=== PATIENT | female | born 1995 | race Caucasian/White ===

== ENCOUNTER 2016-12-14 12:30 | Emergency (ER) | payer OTHER ==
[~2016-12-14] VITALS: Ht 162.6 cm; Wt 121.9 kg
[~2016-12-14 12:30] MED LIST: AMOXICILLIN500 MG PO; AMOXICILLIN875 MG PO; CIPROFLOXACIN H10 ML BOTH EYES; CLARITIN-D 121 EACH PO; FLEXERIL10 MG PO; IBUPROFEN600 MG PO; INDOCIN25 MG PO; MOTRIN600 MG PO; NAPROSYN500 MG PO; NAPROXEN500 MG PO; NORCO 5/3251 TABLET PO; PERCOCET 5/31 TABLET PO; PREDNISONE10 M1 PO; ULTRACET1 TABLET PO; VALIUM5 MG PO; VENTOLIN HFA18 GM IH; VIGAMOX 0.60 DROP/3 BOTH EYES; ZITHROMAX Z-PA250 MG PO
[2016-12-14 14:22] VITALS: BP 132/80
== END 2016-12-14 14:23 | disposition home or self-care (01) ==
LOC: EME 12:30
DX: S99.912A Unspecified injury of left ankle, initial encounter (principal); S99.922A Unspecified injury of left foot, initial encounter; X58.XXXA Exposure to other specified factors, initial encounter; F17.200 Nicotine dependence, unspecified, uncomplicated
CPT/HCPCS: 73630; 99281; 99283

== ENCOUNTER 2017-05-09 19:01 | Emergency (ER) | payer OTHER ==
[~2017-05-09] VITALS: Ht 162.6 cm; Wt 118.8 kg
[2017-05-09 20:39] LABS: HEMATOCRIT 42.6 % (36.0-46.0); MCH 32.4 PG (29.0-34.0); MCHC 35.2 G/DL (30.0-36.0); MEAN PLAT.VOLUME 9.4 uM^3 (9.5-12.4); PLATELET COUNT 290 K/uL (156-360); RBC DIS.WIDTH-CV 12.1 % (11.8-14.6); RBC DIS.WIDTH-SD 40.2 % (39-53); RED BLOOD COUNT 4.63 M/uL (3.80-5.20); WHITE BLOOD COUNT 13.6 K/uL (4.1-10.2)
[2017-05-09 20:50] LABS: CHLORIDE 107 mEq/L (99-109); POTASSIUM 3.8 mEq/L (3.7-5.4); SODIUM 140 mEq/L (136-147)
[2017-05-09 20:52] LABS: GLUCOSE 79 mg/dL (70-99)
[2017-05-09 20:53] LABS: ANION GAP 10 MEQ/L (2-14)
[2017-05-09 20:54] LABS: TOTAL BILIRUBIN 0.2 mg/dL (0.0-1.0)
[2017-05-09 20:55] LABS: ALKALINE PHOSPHATASE 78 IU/L (3-129)
[2017-05-09 20:56] LABS: GFR ESTIMATE (CALCULATED) > 59 mL/min/
[2017-05-09 20:57] LABS: UREA NITROGEN (BUN) 16 mg/dL (9-23)
[2017-05-09 21:05] LABS: TROP-I INTERPRETATION NEGATIVE; TROPONIN-I < 0.01 ng/mL (0.0-0.30)
[2017-05-09 21:06] LABS: QUANTITATIVE HCG < 4.0 MIU/ML
[2017-05-09 21:43] LABS: ADD MIUA? YES; BILIRUBIN NEGATIVE; BLOOD NEGATIVE; COLOR YELLOW ((YELLOW)); GLUCOSE (STRIP) NEGATIVE; KETONES NEGATIVE; LEUKOCYTES TRACE; NITRITE NEGATIVE; PROTEIN (STRIP) NEGATIVE; SPECIFIC GRAVITY 1.018 (1.000-1.030); UROBILINOGEN 0.2 MG/DL (0.2-1.0)
[2017-05-09 22:06] LABS: BACTERIA RARE /HPF; EPITHELIAL CELLS RARE /HPF; HYALINE CASTS 0-5 /LPF; MUCUS TRACE /LPF; RED BLOOD CELLS 0-5 /HPF (0-5); UCUL ADDED? NO; WHITE BLOOD CELLS 0-5 /HPF (0-5)
[2017-05-09 22:21] VITALS: BP 109/92
== END 2017-05-09 22:22 | disposition home or self-care (01) ==
LOC: EME 19:01
PROVIDERS: Nurse Practitioner Family
DX: R07.9 Chest pain, unspecified (principal); R06.02 Shortness of breath; F17.200 Nicotine dependence, unspecified, uncomplicated
CPT/HCPCS: 71020; 80053; 81003; 84484; 84702; 85027; 93005; 99281; 99284

== ENCOUNTER 2017-12-09 09:45 | Emergency (ER) | payer SELFPAY ==
[~2017-12-09] VITALS: Ht 162.6 cm; Wt 119.8 kg
[2017-12-09] MEDS ORDERED: FLEXERIL10 MG PO (11:30)
[2017-12-09] MEDS ORDERED: NORCO 5/3251 TABLET PO (11:30)
[2017-12-09 11:35] VITALS: BP 115/80
== END 2017-12-09 11:48 | disposition home or self-care (01) ==
LOC: EME 09:45
DX: M54.40 Lumbago with sciatica, unspecified side (principal)
CPT/HCPCS: 99281; 99283

== ENCOUNTER 2018-04-10 23:19 | Emergency (ER) | payer BC ==
[~2018-04-10] VITALS: Ht 162.6 cm; Wt 122.5 kg
[2018-04-11 02:52] VITALS: BP 134/89
== END 2018-04-11 02:54 | disposition home or self-care (01) ==
LOC: EME 23:19
PROC: 0CQ0XZZ Repair Upper Lip, External Approach (ICD-10-PCS; principal; 2018-04-11)
DX: S00.83XA Contusion of other part of head, initial encounter (principal); S01.511A Laceration without foreign body of lip, initial encounter; W01.0XXA Fall on same level from slipping, tripping and stumbling without subsequent striking against object, initial encounter; F17.200 Nicotine dependence, unspecified, uncomplicated
CPT/HCPCS: 70486; 99281; 99283

== ENCOUNTER 2018-05-12 20:36 | Emergency (ER) | payer BC ==
[~2018-05-12] VITALS: Ht 162.6 cm; Wt 122.0 kg
[2018-05-12 21:38] LABS: HEMATOCRIT 39.3 % (36.0-46.0); HEMOGLOBIN 13.9 G/DL (11.9-15.5); MCH 32.4 PG (29.0-34.0); MCHC 35.4 G/DL (30.0-36.0); MCV 91.6 FL (83-99); PLATELET COUNT 226 K/uL (156-360); RBC DIS.WIDTH-CV 12.1 % (11.8-14.6); RBC DIS.WIDTH-SD 40.4 % (39-53); RED BLOOD COUNT 4.29 M/uL (3.80-5.20); WHITE BLOOD COUNT 13.5 K/uL (4.1-10.2)
[2018-05-12 21:47] LABS: CHLORIDE 105 mEq/L (99-109); D-DIMER ELISA < 150.00 ng/mLDDU (<230); POTASSIUM 3.8 mEq/L (3.7-5.4); SODIUM 139 mEq/L (136-147)
[2018-05-12 21:49] LABS: GLUCOSE 91 mg/dL (70-99)
[2018-05-12 21:53] LABS: CREATININE 0.8 mg/dL (0.6-1.3); GFR ESTIMATE (CALCULATED) > 59 mL/min/
[2018-05-12 21:54] LABS: UREA NITROGEN (BUN) 20 mg/dL (9-23)
[2018-05-12 22:01] LABS: QUANTITATIVE HCG < 4.0 MIU/ML
[2018-05-12] MEDS ORDERED: CARAFATE1 GM PO (22:51)
[2018-05-12] MEDS ORDERED: PEPCID20 MG PO (22:51)
[2018-05-12 23:00] VITALS: BP 119/57
== END 2018-05-12 23:01 | disposition home or self-care (01) ==
LOC: RME 20:36 → EME 20:36 → RME 23:01
PROVIDERS: Physician Assistant
DX: R07.89 Other chest pain (principal); K21.9 Gastro-esophageal reflux disease without esophagitis; F17.200 Nicotine dependence, unspecified, uncomplicated; Z98.890 Other specified postprocedural states
CPT/HCPCS: 71046; 80048; 84702; 85027; 85379; 93005; 99281; 99284